=== PATIENT | female | born 1960 | race Two or more races ===

== ENCOUNTER 2023-10-02 20:12 | Inpatient (IN) | payer MEDICARE, MEDICAID ==
[~2023-10-02] VITALS: Ht 121.9 cm; Wt 33.0 kg
[2023-10-02] MEDS: SODIUM CHLORIDE 0.9% 1,000 ML IV ONE (20:45)
[2023-10-02 21:17] LABS: Basophils # (auto) 0.1 10 ^3/uL (0-0.2); Basophils % (auto) 0.8 % (0.0-2.0); Eosinophils # (auto) 0.1 10 ^3/uL (0-0.8); Eosinophils % (auto) 0.8 % (0.0-7.0); Lymphocytes # (auto) 0.8 10 ^3/uL (0.4-5.4); Neutrophils % (auto) 84.9 % (37.0-80.0); Nucleated Red Blood Cells % 0.1 %
[2023-10-02 21:19] LABS: Hematocrit 41.8 % (36.0-46.0); Hemoglobin 14.3 g/dL (12.2-16.2); Mean Corpuscular Hemoglobin 32.9 pg (28.0-32.0); Mean Corpuscular Hgb Conc. 34.1 g/dL (32.0-36.0); Mean Corpuscular Volume 96.3 fL (80.0-100.0); Monocytes # (auto) 0.3 10 ^3/uL (0-1.3); Monocytes % (auto) 3.5 % (0.0-12.0); Neutrophils # (auto) 6.6 10 ^3/uL (1.6-8.6); Red Blood Cells 4.34 10^6/uL (4.0-5.20); Red Cell Distribution Width 13.4 % (11.8-14.3); White Blood Cell 7.8 10^3/uL (4.4-10.8)
[2023-10-02 21:32] LABS: Chloride 101 mmol/L (98-107); Potassium 3.2 mmol/L (3.5-5.1); Sodium 134 mmol/L (136-145)
[2023-10-02 21:33] LABS: Anion Gap 8 (5-15); Calcium 9.5 mg/dL (8.5-10.1); Carbon Dioxide 25 mmol/L (20-30)
[2023-10-02 21:38] LABS: BUN/Creatinine Ratio 36.8 (10.0-20.0); Blood Urea Nitrogen 14 mg/dL (9-23); Glucose 232 mg/dL (74-106)
[2023-10-02 21:43] LABS: Lactic Acid w/Reflex 2.5 mmol/L (0.4-2.0)
[2023-10-02 22:00] VITALS: PULSE 104; RESP 18; O2SAT 94
[2023-10-02] MEDS ORDERED: POTASSIUM CHL 20 Meq TABLET PO ONE (22:15)
[2023-10-03] VITALS (14 sets, daily range): BP systolic 92–112; BP diastolic 55–68; PULSE 62–104; RESP 15–22; TEMP 97.5–98.4; O2SAT 92–100
[2023-10-03] MEDS: POTASSIUM EFFERVESENT TAB 25 MEQ PO ONE (00:29)
[2023-10-03] MEDS: ALBUTEROL SULF 2.5 MG/0.5ML(0.5%) NEB SOLN NEB ONE (01:04)
[2023-10-03] MEDS: IPRATROPIUM BROM 0.5 MG/2.5ML INH SOL NEB ONE (01:04)
[2023-10-03] MEDS: methylPREDNISolone SOD SUCC 125 MG/2 ML VL IV ONE (01:32)
[2023-10-03] MEDS: cefTRIAXone 1GM/50ML D5W 50 ML IV ONE (01:33)
[2023-10-03] MEDS: AZITHROMYCIN 500MG/ 250ML 250 ML IV ONE (02:07)
[2023-10-03] MEDS ORDERED: IPRATROPIUM BROM 0.5 MG/2.5ML INH SOL NEB PRN (04:15)
[2023-10-03] MEDS ORDERED: DOCUSATE SOD 100 MG CAP PO PRN (04:15)
[2023-10-03] MEDS ORDERED: HYDROcodone-ACET 5/325MG TAB PO PRN (04:15)
[2023-10-03] MEDS ORDERED: ALBUTEROL SULF 2.5 MG/0.5ML(0.5%) NEB SOLN NEB PRN (04:15)
[2023-10-03] MEDS ORDERED: ACETAMINOPHEN 325 MG TAB PO PRN (04:15)
[2023-10-03] MEDS: SODIUM CHLORIDE 0.9% 1,000 ML IV SCH (05:27)
[2023-10-03] MEDS ORDERED: NITROGLYCERIN 0.4 MG SL TAB SL PRN (06:00)
[2023-10-03] MEDS: methylPREDNISolone SOD SUCC 40 MG/ML VL IV SCH (06:02)
[2023-10-03 07:23] LABS: Hematocrit 36.4 % (36.0-46.0); Hemoglobin 12.5 g/dL (12.2-16.2); Mean Corpuscular Hemoglobin 33.7 pg (28.0-32.0); Mean Corpuscular Hgb Conc. 34.4 g/dL (32.0-36.0); Mean Corpuscular Volume 98.1 fL (80.0-100.0); Red Blood Cells 3.71 10^6/uL (4.0-5.20); Red Cell Distribution Width 13.6 % (11.8-14.3); White Blood Cell 5.7 10^3/uL (4.4-10.8)
[2023-10-03 07:31] LABS: Basophils % (manual) 0 (0.0-2.0); Blast Cells 0; Metamyelocytes % 0; Myelocytes % 0; Promyelocytes % 0; Reactive Lymphocytes 0
[2023-10-03 07:41] LABS: Alanine Aminotransferase 30 U/L (7-40); Albumin 3.9 g/dL (3.2-4.8); Alkaline Phosphatase 168 U/L (46-116); Anion Gap 4 (5-15); Aspartate Aminotransferase 17 U/L (13-40); BUN/Creatinine Ratio 36.4 (10.0-20.0); Blood Urea Nitrogen 12 mg/dL (9-23); Calcium 8.8 mg/dL (8.5-10.1); Carbon Dioxide 24 mmol/L (20-30); Chloride 108 mmol/L (98-107); Glucose 175 mg/dL (74-106); Potassium 4.2 mmol/L (3.5-5.1); Sodium 136 mmol/L (136-145)
[2023-10-03 07:42] LABS: Bilirubin, Total 0.2 mg/dL (0.2-1.0); Total Protein 6.6 g/dL (5.7-8.2)
[2023-10-03 08:40] LABS: Band Neutrophils % (manual) 5; Eosinophils % (manual) 1 (0-7); Lymphocytes % (manual) 3 (10.0-50.0); Monocytes % (manual) 1 (0-12); Platelet Estimate Adequate
[2023-10-03] MEDS: FAMOTIDINE (10MG/ML) 2ML VL IV SCH (10:00)
[2023-10-03] MEDS ORDERED: VANCOMYCIN PER PHARMACY 0 MG IV SCH (10:15)
[2023-10-03] MEDS ORDERED: AZITHROMYCIN 500MG/ 250ML 250 ML IV ONE (10:15)
[2023-10-03] MEDS: VANCOMYCIN 1GM/200ML 200 ML IV ONE (10:52)
[2023-10-03 13:10] LABS: COVID19 ANTIGEN SOFIA FIA NEGATIVE (NEGATIVE); Rapid Influenza A Negative (Negative); Rapid Influenza B Negative (Negative)
[2023-10-03] MEDS ORDERED: CEFEPIME 2GM/50ML NS 50 ML IV SCH (14:00)
[2023-10-03] MEDS: IPRATROPIUM BROM 0.5 MG/2.5ML INH SOL NEB SCH (14:04)
[2023-10-03] MEDS: ALBUTEROL SULF 2.5 MG/0.5ML(0.5%) NEB SOLN NEB SCH (14:04)
[2023-10-03] MEDS: CEFEPIME 2GM/50ML NS 50 ML IV SCH (14:17)
[2023-10-03] MEDS: ONDANSETRON HCL 4 MG/2 ML VIAL IV PRN (14:59)
[2023-10-03] MEDS: MORPHINE SULFATE INJ 2 MG/ml SYRG IV PRN (15:00)
[2023-10-03] MEDS ORDERED: MORPHINE SULFATE INJ 2 MG/ml SYRG IV PRN (22:30)
[2023-10-03] MEDS: VANCOMYCIN 1GM/200ML 200 ML IV SCH (22:37)
[2023-10-04] VITALS (19 sets, daily range): BP systolic 102–135; BP diastolic 63–79; PULSE 55–99; RESP 16–20; TEMP 97.6–98.3; O2SAT 94–100
[2023-10-04] MEDS ORDERED: cefTRIAXone 1GM/50ML D5W 50 ML IV SCH (02:00)
[2023-10-04 06:58] LABS: Basophils # (auto) 0 10 ^3/uL (0-0.2); Basophils % (auto) 0.7 % (0.0-2.0); Eosinophils # (auto) 0.1 10 ^3/uL (0-0.8); Eosinophils % (auto) 1.2 % (0.0-7.0); Hematocrit 36.1 % (36.0-46.0); Hemoglobin 12.1 g/dL (12.2-16.2); Lymphocytes # (auto) 1.3 10 ^3/uL (0.4-5.4); Lymphocytes % (auto) 20.4 % (10.0-50.0); Mean Corpuscular Hemoglobin 32.7 pg (28.0-32.0); Mean Corpuscular Hgb Conc. 33.6 g/dL (32.0-36.0); Mean Corpuscular Volume 97.3 fL (80.0-100.0); Monocytes # (auto) 0.5 10 ^3/uL (0-1.3); Monocytes % (auto) 8.4 % (0.0-12.0); Neutrophils # (auto) 4.4 10 ^3/uL (1.6-8.6); Neutrophils % (auto) 69.3 % (37.0-80.0); Nucleated Red Blood Cells % 0.1 %; Red Blood Cells 3.71 10^6/uL (4.0-5.20); Red Cell Distribution Width 13.4 % (11.8-14.3); White Blood Cell 6.4 10^3/uL (4.4-10.8)
[2023-10-04 07:16] LABS: Alanine Aminotransferase 34 U/L (7-40); Albumin 3.8 g/dL (3.2-4.8); Alkaline Phosphatase 140 U/L (46-116); Anion Gap 5 (5-15); Aspartate Aminotransferase 23 U/L (13-40); Bilirubin, Total 0.3 mg/dL (0.2-1.0); Calcium 9.1 mg/dL (8.5-10.1); Carbon Dioxide 24 mmol/L (20-30); Chloride 108 mmol/L (98-107); Glucose 91 mg/dL (74-106); Potassium 3.9 mmol/L (3.5-5.1); Sodium 137 mmol/L (136-145); Total Protein 6.4 g/dL (5.7-8.2)
[2023-10-04 07:21] LABS: BUN/Creatinine Ratio 22.7 (10.0-20.0); Blood Urea Nitrogen < 5 mg/dL (9-23)
[2023-10-04] MEDS: AZITHROMYCIN 500MG/ 250ML 250 ML IV SCH (08:13)
[2023-10-04] MEDS: ENOXAPARIN SOD 30 MG/0.3 ML SYRINGE SC SCH (08:13)
[2023-10-04] MEDS ORDERED: DEXTROSE (50%) 50ML SYRG IV PRN (08:30)
[2023-10-04] MEDS: InsuLIN REG 1unit/0.01ml Soln (100units/ml) SC SCH ×2 (11:31→18:00)
[2023-10-04] MEDS: ACCU-CHEK COMFORT CURVE STRIP VI SCH ×2 (11:32→18:16)
[2023-10-04] MEDS ORDERED: DEXTROSE (50%) 50ML SYRG IV SCH (12:30)
[2023-10-04] MEDS ORDERED: CLINIMIX PER PHARMACY 0 ML IV SCH (14:00)
[2023-10-04] MEDS: AMINO ACID INFUSION IN D5W 2,000 ML IV NR (20:05)
[2023-10-05] VITALS (17 sets, daily range): BP systolic 115–142; BP diastolic 76–93; PULSE 64–108; RESP 18–73; TEMP 97.1–98.4; O2SAT 93–98
[2023-10-05 07:02] LABS: Basophils # (auto) 0 10 ^3/uL (0-0.2); Basophils % (auto) 0.5 % (0.0-2.0); Eosinophils # (auto) 0.1 10 ^3/uL (0-0.8); Hematocrit 40.3 % (36.0-46.0); Hemoglobin 13.4 g/dL (12.2-16.2); Lymphocytes # (auto) 1.1 10 ^3/uL (0.4-5.4); Lymphocytes % (auto) 15.3 % (10.0-50.0); Mean Corpuscular Hemoglobin 32.6 pg (28.0-32.0); Mean Corpuscular Hgb Conc. 33.3 g/dL (32.0-36.0); Mean Corpuscular Volume 97.9 fL (80.0-100.0); Monocytes # (auto) 0.5 10 ^3/uL (0-1.3); Monocytes % (auto) 6.1 % (0.0-12.0); Neutrophils # (auto) 5.6 10 ^3/uL (1.6-8.6); Neutrophils % (auto) 76.1 % (37.0-80.0); Nucleated Red Blood Cells % 0.1 %; Red Blood Cells 4.12 10^6/uL (4.0-5.20); Red Cell Distribution Width 13.5 % (11.8-14.3); White Blood Cell 7.4 10^3/uL (4.4-10.8)
[2023-10-05 07:17] LABS: Alanine Aminotransferase 33 U/L (7-40); Albumin 4.3 g/dL (3.2-4.8); Alkaline Phosphatase 163 U/L (46-116); Anion Gap 5 (5-15); Aspartate Aminotransferase 20 U/L (13-40); BUN/Creatinine Ratio 21.4 (10.0-20.0); Blood Urea Nitrogen 6 mg/dL (9-23); Calcium 9.6 mg/dL (8.5-10.1); Carbon Dioxide 28 mmol/L (20-30); Chloride 105 mmol/L (98-107); Glucose 139 mg/dL (74-106); Phosphorus 2.6 mg/dL (2.4-5.1); Potassium 4.2 mmol/L (3.5-5.1); Sodium 138 mmol/L (136-145); Triglycerides 58 mg/dL (< 150)
[2023-10-05 07:18] LABS: Bilirubin, Total 0.4 mg/dL (0.2-1.0); Total Protein 7.3 g/dL (5.7-8.2)
[2023-10-05] MEDS: cefTRIAXone 1GM/50ML D5W 50 ML IV SCH (09:45)
[2023-10-05] MEDS: AMINO ACID INFUSION IN D10W 2,000 ML IV NR (20:02)
[2023-10-06] VITALS (22 sets, daily range): BP systolic 102–126; BP diastolic 62–84; PULSE 73–91; RESP 16–22; TEMP 97.8–99.8; O2SAT 97–100
[2023-10-06 11:11] LABS: Basophils # (auto) 0 10 ^3/uL (0-0.2); Basophils % (auto) 0.1 % (0.0-2.0); Eosinophils # (auto) 0 10 ^3/uL (0-0.8); Eosinophils % (auto) 0.5 % (0.0-7.0); Hematocrit 42.8 % (36.0-46.0); Hemoglobin 14.3 g/dL (12.2-16.2); Lymphocytes # (auto) 0.9 10 ^3/uL (0.4-5.4); Lymphocytes % (auto) 9.5 % (10.0-50.0); Mean Corpuscular Hemoglobin 32.7 pg (28.0-32.0); Mean Corpuscular Hgb Conc. 33.4 g/dL (32.0-36.0); Monocytes # (auto) 0.4 10 ^3/uL (0-1.3); Monocytes % (auto) 4.3 % (0.0-12.0); Neutrophils # (auto) 7.7 10 ^3/uL (1.6-8.6); Neutrophils % (auto) 85.6 % (37.0-80.0); Nucleated Red Blood Cells % 0.1 %; Red Blood Cells 4.37 10^6/uL (4.0-5.20); Red Cell Distribution Width 13.4 % (11.8-14.3)
[2023-10-06 12:08] LABS: Alanine Aminotransferase 27 U/L (7-40); Albumin 4.3 g/dL (3.2-4.8); Alkaline Phosphatase 169 U/L (46-116); Anion Gap 7 (5-15); Aspartate Aminotransferase 15 U/L (13-40); BUN/Creatinine Ratio 30.4 (10.0-20.0); Blood Urea Nitrogen 7 mg/dL (9-23); Calcium 9.7 mg/dL (8.5-10.1); Carbon Dioxide 24 mmol/L (20-30); Chloride 104 mmol/L (98-107); Glucose 117 mg/dL (74-106); Magnesium 1.9 mg/dL (1.6-2.6); Phosphorus 2.8 mg/dL (2.4-5.1); Potassium 3.8 mmol/L (3.5-5.1); Sodium 135 mmol/L (136-145)
[2023-10-06 12:09] LABS: Bilirubin, Total 0.4 mg/dL (0.2-1.0); Total Protein 7.5 g/dL (5.7-8.2)
[2023-10-06] MEDS: AMINO ACID INFUSION IN D10W 2,000 ML IV NR (20:58)
[2023-10-07] VITALS (17 sets, daily range): BP systolic 91–128; BP diastolic 58–78; PULSE 1–91; RESP 16–21; TEMP 97.9–98.9; O2SAT 97–100
[2023-10-07 10:18] LABS: Basophils # (auto) 0 10 ^3/uL (0-0.2); Basophils % (auto) 0.6 % (0.0-2.0); Eosinophils # (auto) 0.2 10 ^3/uL (0-0.8); Eosinophils % (auto) 3.8 % (0.0-7.0); Hematocrit 43.1 % (36.0-46.0); Hemoglobin 14.6 g/dL (12.2-16.2); Lymphocytes # (auto) 1.3 10 ^3/uL (0.4-5.4); Mean Corpuscular Hemoglobin 32.9 pg (28.0-32.0); Mean Corpuscular Hgb Conc. 33.9 g/dL (32.0-36.0); Monocytes # (auto) 0.3 10 ^3/uL (0-1.3); Neutrophils # (auto) 3.6 10 ^3/uL (1.6-8.6); Neutrophils % (auto) 65.6 % (37.0-80.0); Nucleated Red Blood Cells % 0.1 %; Red Blood Cells 4.44 10^6/uL (4.0-5.20); Red Cell Distribution Width 13.2 % (11.8-14.3); White Blood Cell 5.4 10^3/uL (4.4-10.8)
[2023-10-07 10:42] LABS: Chloride 102 mmol/L (98-107); Sodium 136 mmol/L (136-145)
[2023-10-07 10:45] LABS: Anion Gap 7 (5-15); Carbon Dioxide 27 mmol/L (20-30)
[2023-10-07 10:46] LABS: Calcium 9.9 mg/dL (8.5-10.1)
[2023-10-07 10:50] LABS: Glucose 105 mg/dL (74-106)
[2023-10-07 10:51] LABS: Alkaline Phosphatase 153 U/L (46-116); Magnesium 1.8 mg/dL (1.6-2.6)
[2023-10-07 10:52] LABS: Albumin 4.4 g/dL (3.2-4.8); Aspartate Aminotransferase 33 U/L (13-40)
[2023-10-07 11:09] LABS: Blood Urea Nitrogen 9 mg/dL (9-23); Potassium 4.9 mmol/L (3.5-5.1)
[2023-10-07 11:10] LABS: Bilirubin, Total 0.4 mg/dL (0.2-1.0); Phosphorus 3.7 mg/dL (2.4-5.1); Total Protein 7.4 g/dL (5.7-8.2)
[2023-10-07 11:13] LABS: Alanine Aminotransferase 32 U/L (7-40)
[2023-10-07 12:18] LABS: BUN/Creatinine Ratio 33.3 (10.0-20.0)
[2023-10-07] MEDS: AMINO ACID INFUSION IN D10W 2,000 ML IV NR (20:52)
[2023-10-08] VITALS (19 sets, daily range): BP systolic 93–113; BP diastolic 53–81; PULSE 66–102; RESP 14–22; TEMP 97.4–98.8; O2SAT 97–100
[2023-10-08 07:47] LABS: Basophils # (auto) 0.2 10 ^3/uL (0-0.2); Basophils % (auto) 3.3 % (0.0-2.0); Eosinophils # (auto) 0.3 10 ^3/uL (0-0.8); Eosinophils % (auto) 3.9 % (0.0-7.0); Hematocrit 44.3 % (36.0-46.0); Hemoglobin 14.9 g/dL (12.2-16.2); Lymphocytes # (auto) 1.3 10 ^3/uL (0.4-5.4); Lymphocytes % (auto) 18.6 % (10.0-50.0); Mean Corpuscular Hemoglobin 32.6 pg (28.0-32.0); Mean Corpuscular Hgb Conc. 33.7 g/dL (32.0-36.0); Mean Corpuscular Volume 96.7 fL (80.0-100.0); Monocytes # (auto) 0.6 10 ^3/uL (0-1.3); Monocytes % (auto) 9.5 % (0.0-12.0); Neutrophils # (auto) 4.4 10 ^3/uL (1.6-8.6); Neutrophils % (auto) 64.7 % (37.0-80.0); Nucleated Red Blood Cells % 0.2 %; Red Blood Cells 4.58 10^6/uL (4.0-5.20); Red Cell Distribution Width 13.4 % (11.8-14.3); White Blood Cell 6.8 10^3/uL (4.4-10.8)
[2023-10-08 09:35] LABS: Chloride 102 mmol/L (98-107); Sodium 135 mmol/L (136-145)
[2023-10-08 09:39] LABS: Anion Gap 8 (5-15); Calcium 10.2 mg/dL (8.5-10.1); Carbon Dioxide 25 mmol/L (20-30)
[2023-10-08 09:44] LABS: Alkaline Phosphatase 178 U/L (46-116); Glucose 98 mg/dL (74-106)
[2023-10-08 09:45] LABS: Magnesium 1.9 mg/dL (1.6-2.6)
[2023-10-08 09:46] LABS: Aspartate Aminotransferase 22 U/L (13-40); Phosphorus 3.4 mg/dL (2.4-5.1)
[2023-10-08 09:47] LABS: Bilirubin, Total 0.4 mg/dL (0.2-1.0); Total Protein 8.1 g/dL (5.7-8.2)
[2023-10-08 09:50] LABS: Alanine Aminotransferase 42 U/L (7-40); Albumin 4.7 g/dL (3.2-4.8); Blood Urea Nitrogen 11 mg/dL (9-23); Potassium 3.6 mmol/L (3.5-5.1)
[2023-10-08 09:53] LABS: BUN/Creatinine Ratio 37.9 (10.0-20.0)
[2023-10-08] MEDS: AMINO ACID INFUSION IN D10W 2,000 ML IV NR (20:00)
[2023-10-09] VITALS (22 sets, daily range): BP systolic 97–129; BP diastolic 61–79; PULSE 67–92; RESP 16–21; TEMP 97.2–98.7; O2SAT 94–100
[2023-10-09 07:28] LABS: Alanine Aminotransferase 54 U/L (7-40); Alkaline Phosphatase 166 U/L (46-116); Anion Gap 7 (5-15); BUN/Creatinine Ratio 22.2 (10.0-20.0); Blood Urea Nitrogen 6 mg/dL (9-23); Calcium 9.7 mg/dL (8.5-10.1); Carbon Dioxide 24 mmol/L (20-30); Chloride 102 mmol/L (98-107); Glucose 126 mg/dL (74-106); Potassium 3.9 mmol/L (3.5-5.1); Sodium 133 mmol/L (136-145)
[2023-10-09 07:29] LABS: Albumin 4.3 g/dL (3.2-4.8); Aspartate Aminotransferase 34 U/L (13-40)
[2023-10-09 07:30] LABS: Bilirubin, Total 0.4 mg/dL (0.2-1.0); Total Protein 7.5 g/dL (5.7-8.2)
[2023-10-09] MEDS ORDERED: AMOX500T86 PO (10:12)
[2023-10-09 14:13] LABS: Basophils # (auto) 0 10 ^3/uL (0-0.2); Basophils % (auto) 0.5 % (0.0-2.0); Eosinophils # (auto) 0.2 10 ^3/uL (0-0.8); Eosinophils % (auto) 2.2 % (0.0-7.0); Hematocrit 41.8 % (36.0-46.0); Hemoglobin 14.2 g/dL (12.2-16.2); Lymphocytes # (auto) 1.2 10 ^3/uL (0.4-5.4); Mean Corpuscular Hemoglobin 33.3 pg (28.0-32.0); Mean Corpuscular Hgb Conc. 33.9 g/dL (32.0-36.0); Mean Corpuscular Volume 98.2 fL (80.0-100.0); Monocytes # (auto) 0.7 10 ^3/uL (0-1.3); Monocytes % (auto) 9.5 % (0.0-12.0); Neutrophils # (auto) 5.2 10 ^3/uL (1.6-8.6); Neutrophils % (auto) 71.8 % (37.0-80.0); Nucleated Red Blood Cells % 0.1 %; Red Blood Cells 4.26 10^6/uL (4.0-5.20); Red Cell Distribution Width 13.4 % (11.8-14.3); White Blood Cell 7.3 10^3/uL (4.4-10.8)
[2023-10-09] MEDS ORDERED: AMINO ACID INFUSION IN D5W 2,000 ML IV NR (20:00)
[2023-10-10] VITALS (11 sets, daily range): BP systolic 94–148; BP diastolic 56–92; PULSE 57–117; RESP 16–24; TEMP 97.8–98.6; O2SAT 94–98
[2023-10-10 06:37] LABS: Alanine Aminotransferase 43 U/L (7-40); Albumin 4.2 g/dL (3.2-4.8); Alkaline Phosphatase 158 U/L (46-116); Anion Gap 8 (5-15); Aspartate Aminotransferase 21 U/L (13-40); BUN/Creatinine Ratio 26.1 (10.0-20.0); Blood Urea Nitrogen 6 mg/dL (9-23); Calcium 9.6 mg/dL (8.5-10.1); Carbon Dioxide 25 mmol/L (20-30); Chloride 105 mmol/L (98-107); Glucose 89 mg/dL (74-106); Magnesium 1.8 mg/dL (1.6-2.6); Potassium 3.6 mmol/L (3.5-5.1); Sodium 138 mmol/L (136-145)
[2023-10-10 06:38] LABS: Bilirubin, Total 0.3 mg/dL (0.2-1.0); Phosphorus 3.7 mg/dL (2.4-5.1)
[2023-10-10] MEDS ORDERED: Juven Orange Powder PACKET 27.5gm PO SCH (18:00)
== END 2023-10-10 14:31 | disposition home health service (06) | DRG 871 ==
LOC: EDBD 20:12 → ER 20:12 → TELE 10-03 05:49 → TELE-CENTR 10-03 05:49
PROVIDERS: ADMIT Internal Medicine Pulmonary Disease; ATTEND Internal Medicine Pulmonary Disease
DX: A41.9 Sepsis, unspecified organism (principal); J69.0 Pneumonitis due to inhalation of food and vomit; J96.21 Acute and chronic respiratory failure with hypoxia; R64 Cachexia; J40 Bronchitis, not specified as acute or chronic; E86.0 Dehydration; Z20.822 Contact with and (suspected) exposure to COVID-19; R73.9 Hyperglycemia, unspecified; E87.6 Hypokalemia; L89.159 Pressure ulcer of sacral region, unspecified stage; L89.229 Pressure ulcer of left hip, unspecified stage; Z74.01 Bed confinement status; L89.109 Pressure ulcer of unspecified part of back, unspecified stage; Z68.22 Body mass index [BMI] 22.0-22.9, adult
CPT/HCPCS: 31720; 36415; 71045; 71275; 80048; 80053; 82962; 83036; 83605; 83735; 83880; 84100; 84478; 84484; 85007; 85025; 85027; 85379; 87040; 87077; 87081; 87186; 87205; 87426; 87804; 92610; 93005; 93971; 94640; G0378; J0692; J1815; J2405; J3490

== ENCOUNTER 2023-11-04 18:44 | Inpatient (IN) | payer MEDICARE, MEDICAID ==
[~2023-11-04] VITALS: Ht 142.2 cm; Wt 60.0 kg
[~2023-11-04 18:44] MED LIST: AMOX500T86 PO
[2023-11-04] MEDS: ETOMIDATE (2MG/ML) 20ML VIAL IV ONE (18:50)
[2023-11-04] MEDS: SUCCINYLCHOLINE CHLORIDE 20 MG/ML 10ML VIAL IV ONE (18:51)
[2023-11-04] MEDS: ROCURONIUM 10MG/ML 10ML VIAL IV ONE ×2 (18:56)
[2023-11-04] MEDS: MIDAZOLAM DRIP 50 mg/50mL 50 ML IV ONE (19:00)
[2023-11-04] MEDS: MIDAZOLAM DRIP 50 mg/50mL 50 ML IV SCH (19:00)
[2023-11-04] MEDS: SODIUM CHLORIDE 0.9% 1,000 ML IV ONE ×2 (19:30→20:00)
[2023-11-04] MEDS ORDERED: NOREPINEPHRINE 8 MG/250ML KIT 250 ML IV SCH (19:30)
[2023-11-04] MEDS: NOREPINEPHRINE 8 MG/250ML KIT 250 ML IV SCH (19:30)
[2023-11-04] MEDS: NOREPINEPHRINE 8 MG/250ML KIT 250 ML IV ONE (19:33)
[2023-11-04 20:09] LABS: Urine Bacteria None Seen /hpf (None Seen)
[2023-11-04 20:27] LABS: Urine Blood 2+ /uL (Negative); Urine Clarity Ex.Turbid (Clear); Urine Color Light-Orange (Yellow); Urine Protein, UAD 2+ (Negative); Urine Specific Gravity 1.023 (1.001-1.035); Urine Urobilinogen Normal (Negative); Urine WBC 1 /hpf (0 - 5); Urine pH 6.5 (5.0-9.0)
[2023-11-04 20:28] LABS: Basophils # (auto) 0 10 ^3/uL (0-0.2); Eosinophils # (auto) 0 10 ^3/uL (0-0.8); Eosinophils % (auto) 0.2 % (0.0-7.0); Hemoglobin 11.9 g/dL (12.2-16.2); Lymphocytes # (auto) 0.6 10 ^3/uL (0.4-5.4); Monocytes # (auto) 0.2 10 ^3/uL (0-1.3)
[2023-11-04 20:30] LABS: Basophils % (auto) 0.3 % (0.0-2.0); Hematocrit 36.2 % (36.0-46.0); Lymphocytes % (auto) 8.4 % (10.0-50.0); Mean Corpuscular Hgb Conc. 32.9 g/dL (32.0-36.0); Mean Corpuscular Volume 103.4 fL (80.0-100.0); Monocytes % (auto) 3.4 % (0.0-12.0); Neutrophils # (auto) 6.2 10 ^3/uL (1.6-8.6); Neutrophils % (auto) 87.7 % (37.0-80.0); Red Cell Distribution Width 15.9 % (11.8-14.3); White Blood Cell 7.1 10^3/uL (4.4-10.8)
[2023-11-04] MEDS ORDERED: VANCOMYCIN PER PHARMACY 0 MG IV SCH (20:45)
[2023-11-04] MEDS ORDERED: SODIUM CHLORIDE 0.9% 1,000 ML IV SCH (20:45)
[2023-11-04] MEDS ORDERED: ONDANSETRON HCL 4 MG/2 ML VIAL IV PRN (20:45)
[2023-11-04 20:48] LABS: Alanine Aminotransferase 110 U/L (7-40); Albumin 2.9 g/dL (3.2-4.8); Alkaline Phosphatase 137 U/L (46-116); Anion Gap 19 (5-15); Aspartate Aminotransferase 96 U/L (13-40); BUN/Creatinine Ratio 42.7 (10.0-20.0); Bilirubin, Total 0.3 mg/dL (0.2-1.0); Blood Urea Nitrogen 32 mg/dL (9-23); Calcium 7.3 mg/dL (8.7-10.4); Carbon Dioxide 15 mmol/L (20-30); Chloride 113 mmol/L (98-107); Glucose 96 mg/dL (74-106); Magnesium 2.3 mg/dL (1.6-2.6); Potassium 4.6 mmol/L (3.5-5.1); Sodium 147 mmol/L (136-145); Total Protein 4.7 g/dL (5.7-8.2)
[2023-11-04 20:52] LABS: Base Excess -18.4 mmol/L (-2.0-2.0)
[2023-11-04 20:54] LABS: INR 1.37 (0.9-1.15); Partial Thromboplastin Time 37.9 SEC (24.5-34.5); Prothrombin Time 14.2 sec (9.3-11.8)
[2023-11-04 21:15] VITALS: BP 85/54; PULSE 121; RESP 18; O2SAT 100
[2023-11-04] MEDS ORDERED: MORPHINE SULFATE INJ 2 MG/ml SYRG IV PRN (21:15)
[2023-11-04] MEDS ORDERED: NITROGLYCERIN 0.4 MG SL TAB SL PRN (21:15)
[2023-11-04 21:17] LABS: Lactic Acid w/Reflex 11.6 mmol/L (0.4-2.0)
[2023-11-04] MEDS: SODIUM BICARB 8.4% 50Meq/50ml SYR Vial IV ONE ×3 (21:29→21:32)
[2023-11-04] MEDS: cefTRIAXone 1GM/50ML D5W 50 ML IV ONE (21:29)
[2023-11-04] MEDS ORDERED: VANCOMYCIN 1GM/200ML 200 ML IV ONE (22:00)
[2023-11-04] MEDS: LACTATED RINGER'S 1,000 ML IV ONE (22:10)
[2023-11-04] MEDS: FAMOTIDINE (10MG/ML) 2ML VL IV SCH (22:15)
[2023-11-04] MEDS ORDERED: LACTATED RINGER'S 1,000 ML IV SCH (22:15)
[2023-11-04] MEDS: HEPARIN SODIUM (PORCINE) 5000 UNITS/ML 1ML VIAL SC SCH (22:17)
[2023-11-04] MEDS: PHENYLEPHRINE IV 250 ML IV SCH (22:18)
[2023-11-04] MEDS: ALBUMIN 25% 100 ML IV ONE (22:59)
[2023-11-04] MEDS: VANCOMYCIN 750mg/150ml 150 ML IV ONE (23:07)
[2023-11-04] MEDS: LACTATED RINGER'S 1,000 ML IV SCH (23:12)
[2023-11-04 23:16] VITALS: BP 98/66; PULSE 137; RESP 20; O2SAT 96
[2023-11-05] VITALS (107 sets, daily range): BP systolic 31–141; BP diastolic 17–108; PULSE 102–148; RESP 10–23; TEMP 82–99.1; O2SAT 13–98
[2023-11-05] MEDS: VASOPRESSIN 20 UNIT/ML ONE (04:50)
[2023-11-05] MEDS: VASOPRESSIN 20 UNITS in SODIUM CHL 0.9% 99 ML IV SCH (04:51)
[2023-11-05] MEDS: SODIUM BICARB 50mEq/50ml Vial 100 ML in SOD CHL 0.45% 1,000 ML IV SCH (04:51)
[2023-11-05] MEDS: SODIUM BICARB 8.4% 50Meq/50ml SYR Vial IV ONE (04:51)
[2023-11-05] MEDS: EPINEPHrine HCL 0 ML IV ONE (05:52)
[2023-11-05] MEDS: ALBUMIN 5% 250 ML IV ONE ×2 (05:59→06:00)
[2023-11-05] MEDS ORDERED: cefTRIAXone 1GM/50ML D5W 50 ML IV SCH (09:00)
[2023-11-05] MEDS ORDERED: AMIODARONE BOLUS KIT 100 ML IV ONE (09:15)
[2023-11-05] MEDS ORDERED: AMIODARONE 450mg/250ml AE 250 ML IV SCH ×2 (09:30→15:30)
[2023-11-05] MEDS ORDERED: fentaNYL Drip 2500mCg/250mlNS 250 ML IV SCH (09:45)
[2023-11-05] MEDS: PANTOPRAZOLE 40 MG/10 ML VIAL INJ IV SCH (10:00)
[2023-11-05] MEDS: fentaNYL Drip 2500mCg/250mlNS 250 ML IV SCH (10:15)
[2023-11-05] MEDS: EPINEPHrine HCL INJECTION 16 MG in D5W 5% 234 ML IV SCH (10:15)
[2023-11-05] MEDS: SODIUM CHLORIDE 0.9% 1,000 ML IV SCH ×2 (10:31→13:17)
[2023-11-05] MEDS: SODIUM CHLORIDE 0.9% 1,000 ML IV ONE ×2 (10:35→12:24)
[2023-11-05] MEDS: HYDROCORTISONE SOD SUCC 100 MG/2ML INJ VIAL IV ONE (10:46)
[2023-11-05] MEDS: ENOXAPARIN SOD 40 MG/0.4 ML SYRINGE SC SCH (10:46)
[2023-11-05] MEDS: PANTOPRAZOLE 40 MG/10 ML VIAL INJ IV ONE (10:46)
[2023-11-05] MEDS: PIPERACILLIN-TAZO 4.5GM 100 ML IV ONE (10:47)
[2023-11-05 10:58] LABS: Base Excess -6.2 mmol/L (-2.0-2.0)
[2023-11-05] MEDS: NOREPINEPHRINE BITARTRATE 32 MG in SODIUM CHL 0.9% 218 ML IV SCH (11:02)
[2023-11-05] MEDS: PHENYLEPHRINE INJ 80 MG in SODIUM CHL 0.9% 242 ML IV SCH (11:08)
[2023-11-05 12:59] LABS: Basophils # (auto) 0 10 ^3/uL (0-0.2); Eosinophils # (auto) 0 10 ^3/uL (0-0.8); Lymphocytes # (auto) 0.3 10 ^3/uL (0.4-5.4); Monocytes # (auto) 0 10 ^3/uL (0-1.3)
[2023-11-05 13:01] LABS: Basophils % (auto) 0.2 % (0.0-2.0); Eosinophils % (auto) 2.4 % (0.0-7.0); Hematocrit 32.9 % (36.0-46.0); Hemoglobin 11.1 g/dL (12.2-16.2); Lymphocytes % (auto) 19.8 % (10.0-50.0); Mean Corpuscular Hemoglobin 33.5 pg (28.0-32.0); Mean Corpuscular Hgb Conc. 33.6 g/dL (32.0-36.0); Mean Corpuscular Volume 99.8 fL (80.0-100.0); Neutrophils # (auto) 1.1 10 ^3/uL (1.6-8.6); Neutrophils % (auto) 75.6 % (37.0-80.0); Nucleated Red Blood Cells % 0.5 %; Red Cell Distribution Width 15.7 % (11.8-14.3)
[2023-11-05 13:08] LABS: White Blood Cell 1.4 10^3/uL (4.4-10.8)
[2023-11-05] MEDS: HYDROCORTISONE SOD SUCC 100 MG/2ML INJ VIAL IV SCH (13:26)
[2023-11-05] MEDS: DEXTROSE 50% SYRINGE 50 ML IV ONE (14:05)
[2023-11-05] MEDS: DEXTROSE (50%) 50ML SYRG IV PRN (14:20)
[2023-11-05] MEDS: DEXTROSE 10% 1,000 ML IV SCH (14:30)
[2023-11-05 14:35] LABS: Chloride 113 mmol/L (98-107); Sodium 145 mmol/L (136-145)
[2023-11-05] MEDS: DEXTROSE 10% 1,000 ML IV ONE (14:37)
[2023-11-05 14:44] LABS: Alkaline Phosphatase 87 U/L (46-116); BUN/Creatinine Ratio 35.3 (10.0-20.0); Glucose 370 mg/dL (74-106)
[2023-11-05 14:46] LABS: Albumin 2.1 g/dL (3.2-4.8); Bilirubin, Total 0.5 mg/dL (0.2-1.0); Total Protein 3.2 g/dL (5.7-8.2)
[2023-11-05 15:03] LABS: COVID19 ANTIGEN SOFIA FIA NEGATIVE (NEGATIVE); Rapid Influenza A Negative (Negative); Rapid Influenza B Negative (Negative)
[2023-11-05 15:15] LABS: Alanine Aminotransferase 1726 U/L (7-40); Blood Urea Nitrogen 42 mg/dL (9-23)
[2023-11-05] MEDS: ACCU-CHEK COMFORT CURVE STRIP VI SCH (15:15)
[2023-11-05 15:18] LABS: Calcium 5.8 mg/dL (8.7-10.4); Potassium 5.6 mmol/L (3.5-5.1)
[2023-11-05 15:21] LABS: Anion Gap 14 (5-15); Carbon Dioxide 18 mmol/L (20-30)
[2023-11-05] MEDS: SODIUM ZIRCONIUM CYCL 10 GM PAK PO ONE (15:30)
[2023-11-05] MEDS: ALBUTEROL SULF 2.5 MG/0.5ML(0.5%) NEB SOLN NEB ONE (15:35)
[2023-11-05] MEDS: SODIUM BICARB 8.4% 50Meq/50ml SYR INJ IV ONE (15:44)
[2023-11-05] MEDS: DEXTROSE (50%) 50ML SYRG IV ONE (15:44)
[2023-11-05] MEDS: InsuLIN REG 1unit/0.01ml Soln (100units/ml) IV ONE (16:04)
[2023-11-05 16:17] LABS: Aspartate Aminotransferase 2200 U/L (13-40)
[2023-11-05] MEDS: PIPERACILLIN-TAZO 4.5GM 100 ML IV SCH (18:05)
[2023-11-05] MEDS ORDERED: SODIUM CHLORIDE 0.9% 1,000 ML IV SCH (20:15)
[2023-11-05] MEDS ORDERED: DEXTROSE 10% 1,000 ML IV SCH (20:15)
[2023-11-05] MEDS ORDERED: MEROPENEM 1GM IVPB 50 ML IV ONE (20:30)
[2023-11-05] MEDS ORDERED: LORazepam 2MG/ML-1ML VIAL IV PRN (20:45)
[2023-11-05] MEDS ORDERED: MORPHINE SULFATE INJ 2 MG/ml SYRG IV PRN (20:45)
[2023-11-05] MEDS ORDERED: MEROPENEM 1GM IVPB 50 ML IV SCH (22:00)
== END 2023-11-06 00:30 | DRG 871 ==
LOC: EDBD 18:44 → ER 18:44 → TELE 21:13 → ICU WEST 11-05 02:12
PROVIDERS: ADMIT Internal Medicine Pulmonary Disease; ATTEND Anesthesiology
PROC: 5A1945Z Respiratory Ventilation, 24-96 Consecutive Hours (ICD-10-PCS; principal; 2023-11-04)
PROC: 0BH17EZ Insertion of Endotracheal Airway into Trachea, Via Natural or Artificial Opening (ICD-10-PCS; 2023-11-04)
PROC: 02HV33Z Insertion of Infusion Device into Superior Vena Cava, Percutaneous Approach (ICD-10-PCS; 2023-11-04)
PROC: 4A133B1 Monitoring of Arterial Pressure, Peripheral, Percutaneous Approach (ICD-10-PCS; 2023-11-05)
DX: A41.9 Sepsis, unspecified organism (principal); G93.41 Metabolic encephalopathy; J69.0 Pneumonitis due to inhalation of food and vomit; J96.01 Acute respiratory failure with hypoxia; R65.21 Severe sepsis with septic shock; I21.A1 Myocardial infarction type 2; J18.9 Pneumonia, unspecified organism; I26.99 Other pulmonary embolism without acute cor pulmonale; D68.8 Other specified coagulation defects; N17.9 Acute kidney failure, unspecified; E87.29 Other acidosis; N39.0 Urinary tract infection, site not specified; I46.9 Cardiac arrest, cause unspecified; I48.91 Unspecified atrial fibrillation; D53.9 Nutritional anemia, unspecified; E16.2 Hypoglycemia, unspecified; E87.5 Hyperkalemia; E87.6 Hypokalemia; Z20.822 Contact with and (suspected) exposure to COVID-19; E86.0 Dehydration; Z79.2 Long term (current) use of antibiotics; Z79.899 Other long term (current) drug therapy; Z82.49 Family history of ischemic heart disease and other diseases of the circulatory system; Z74.01 Bed confinement status
CPT/HCPCS: 31500; 36415; 36600; 71045; 74018; 76942; 80053; 80202; 81001; 82805; 82962; 83605; 83735; 83880; 84484; 85025; 85379; 85610; 85730; 87040; 87070; 87077; 87081; 87086; 87186; 87205; 87426; 87804; 93306; 93970; 94002; 94003; 94640; 99152; 99153; 99291; G0378; J0171; J1815; J2470; J2543; J3490; J7060; P9047